=== PATIENT | female | born 1995 ===

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

== ENCOUNTER 2017-04-23 11:02 | Emergency (ER) | payer MEDICAID ==
[2017-04-23 11:02] VITALS: BMI 20.6
[2017-04-23 11:24] VITALS: BP 128/70; PULSE 102; RESP 20; TEMP 98.7; O2SAT 99
[2017-04-23] MEDS ORDERED: Amoxicillin-Clav 875-125 mg Tab PO STA (11:54)
--- NOTE | 2017-04-23 11:57 | C.PDOC ---
History Of Present Illness 21 year old female, with no significant past medical history, presents to ED for evaluation of mild headache and sore throat that gradually worsened over the last 2 days. Pt also reports subjective fever. Denies high fever, drooling, cough, congestion, chest pain, wheezing, shortness of breath, dizziness, nausea , vomiting, or abdominal pain. Time Seen by Provider: 04/23/17 11:25 Chief Complaint (Nursing): ENT Problem History Per: Patient History/Exam Limitations: None Onset/Duration Of Symptoms: Days (2), Gradual Current Symptoms Are (Timing): Still Present Past Medical History Reviewed: Historical Data, Nursing Documentation, Vital Signs Vital Signs: Last Vital Signs Temp 98.7 F 04/23/17 11:21 Pulse 102 H 04/23/17 11:21 Resp 20 04/23/17 11:21 BP 128/70 04/23/17 11:21 Pulse Ox 99 04/23/17 12:18 - [facility] Procedures OTHER SKIN & SUBQ I D (12/06/13) Family History: States: Unknown Family Hx - Social History Hx Tobacco Use: No Hx Alcohol Use: No Hx Substance Use: No - Immunization History Hx Tetanus Toxoid Vaccination: Yes Hx Influenza Vaccination: No Hx Pneumococcal Vaccination: No Review Of Systems Except As Marked, All Systems Reviewed And Found Negative. Constitutional: Positive for: Fever Eyes: Negative for: Vision Change ENT: Positive for: Throat Pain. Negative for: Ear Pain, Nose Discharge, Nose Congestion Cardiovascular: Negative for: Chest Pain, Palpitations Respiratory: Negative for: Cough, Shortness of Breath Gastrointestinal: Negative for: Nausea, Vomiting, Abdominal Pain Neurological: Positive for: Headache. Negative for: Weakness, Numbness, Dizziness Physical Exam - Physical Exam Appears: Well, Non-toxic, No Acute Distress Skin: Normal Color, Warm, Dry, No Rash Head: Normacephalic Eye(s): bilateral: PERRL Ear(s): Bilateral: Normal Nose: No Flaring, No Discharge Oral Mucosa: Moist, No Drooling Throat: Erythema (mod B/L), Exudate (mild B/L), No Drooling, Other (uvul amidline, no edema.) Neck: Trachea Midline, Supple Cardiovascular: Rhythm Regular, No Murmur Respiratory: No Decreased Breath Sounds, No Accessory Muscle Use, No Stridor, No Wheezing Gastrointestinal/Abdominal: Soft, No Tenderness, No Distention, No Guarding Back: No CVA Tenderness Extremity: Normal ROM, No Deformity, No Swelling Neurological/Psych: Oriented x3, Normal Speech ED Course And Treatment O2 Sat by Pulse Oximetry: 99 Pulse Ox Interpretation: Normal Progress Note: On re-eval, pt is Afebrile, hemodynamicaly stable. Non-toxic, tolerate Po well in ED. PUlseOx 99% RA. neck: Supple, (-) meningeal sign. ENT : exam c/w acute pharyngitis. uvula midline, no edema. Lungs: CTA B/L, BS equal B/L. Abd: benign. Neuorlogicaly intact. pt advised. ref. to f/u with PMD, ENT in 1-2 days for re-eavl. return to ED if any worsening or new changes. Disposition Counseled Patient/Family Regarding: Diagnosis, Need For Followup, Rx Given - Disposition Referrals: [facility] at [facility] [Outside] Disposition: HOME/ ROUTINE Disposition Time: 11:35 Condition: STABLE Additional Instructions: Encourage fluids Take medication as prescribed Follow up with PMD in 2-3 days for re-evaluation. Return to ED if any worsening or new changes. Prescriptions: Amoxicillin/Clavulanate [Augmentin 875 MG-125 MG] 1 tab PO BID #14 tab Ibuprofen [Motrin] 1 tab PO TID PRN #20 tab PRN Reason: Pain Instructions: Sore Throat, Adult (DC) Forms: [employer] (Malay) - Clinical Impression Clinical Impression: Pharyngitis - PA / EMT B / Resident Statement MD/DO has reviewed & agrees with the documentation as recorded. - Scribe Statement The provider has reviewed the documentation as recorded by the Rajinder Chou All medical record entries made by the Rajinder were at my direction and personally dictated by me. I have reviewed the chart and agree that the record accurately reflects my personal performance of the history, physical exam, medical decision making, and the department course for this patient. I have also personally directed, reviewed, and agree with the discharge instructions and disposition.
[2017-04-23] MEDS ORDERED: Amoxicillin-Clav 875-125 mg Tab PO ONE (11:59)
== END 2017-04-23 12:13 | disposition home or self-care (01) ==
LOC: C.ER 11:02
DX: J02.9 Acute pharyngitis, unspecified (principal)

== ENCOUNTER 2017-06-22 21:04 | Emergency (ER) | payer MEDICAID ==
[2017-06-22 21:05] VITALS: BMI 20.6
[2017-06-22 21:15] VITALS: RESP 20
[2017-06-22 22:40] LABS: SQUAMOUS EPITHIAL 2 /hpf (0-5); URINE BACTERIA MOD (<OCC); URINE BILIRUBIN NEGATIVE (NEGATIVE); URINE BLOOD 2+ (NEGATIVE); URINE CLARITY Hazy (Clear); URINE COLOR Yellow (YELLOW); URINE GLUCOSE (UA) NORMAL (Normal); URINE LEUKOCYTE ESTERASE 3+ Leu/uL (Negative); URINE PROTEIN 2+ mg/dL (NEGATIVE); URINE UROBILINOGEN NORMAL mg/dL (0.2-1.0)
--- NOTE | 2017-06-22 23:08 | C.PDOC ---
History Of Present Illness 21 year old female presents to the ED c/o lower back pain radiating to her inguinal area. Patient also c/o urinary frequency. Patient denies dysuria, hematuria, fever, chills, nausea, vomit, diarrhea. Time Seen by Provider: 06/22/17 21:46 Chief Complaint (Nursing): Back Pain History Per: Patient History/Exam Limitations: no limitations Onset/Duration Of Symptoms: Days Current Symptoms Are (Timing): Still Present Quality Of Discomfort: "Pain" Previous Symptoms: None Associated Symptoms: None Exacerbating Factor(s): Nothing Recent travel outside of the [place]: No Additional History Per: Patient Past Medical History Reviewed: Historical Data, Nursing Documentation, Vital Signs Vital Signs: Last Vital Signs Temp 99.8 F H 06/22/17 23:30 Pulse 94 H 06/22/17 23:30 Resp 20 06/22/17 23:30 BP 112/70 06/22/17 23:30 Pulse Ox 98 06/22/17 23:30 - Medical History PMH: No Chronic Diseases Surgical History: No Surg Hx - [facility] Procedures OTHER SKIN & SUBQ I D (12/06/13) Family History: States: Unknown Family Hx - Social History Hx Tobacco Use: No Hx Alcohol Use: No Hx Substance Use: No - Immunization History Hx Tetanus Toxoid Vaccination: Yes Hx Influenza Vaccination: No Hx Pneumococcal Vaccination: No Review Of Systems Constitutional: Negative for: Fever, Chills Cardiovascular: Negative for: Chest Pain Respiratory: Negative for: Shortness of Breath Gastrointestinal: Negative for: Abdominal Pain Genitourinary: Positive for: Frequency Musculoskeletal: Positive for: Back Pain Skin: Negative for: Rash Neurological: Negative for: Weakness, Numbness Physical Exam - Physical Exam Appears: Non-toxic, No Acute Distress, Other (low grade temperature ) Skin: Normal Color, Warm, Dry Head: Atraumatic, Normacephalic Eye(s): bilateral: Normal Inspection Nose: No Discharge Oral Mucosa: Moist Neck: Normal ROM, Supple Chest: Symmetrical Cardiovascular: Rhythm Regular, No Murmur Respiratory: Normal Breath Sounds, No Rales, No Rhonchi, No Wheezing Gastrointestinal/Abdominal: Soft, No Tenderness, No Guarding, No Rebound Back: No CVA Tenderness, Paraspinal Tenderness (paralumbar L > R) Extremity: Normal ROM, No Tenderness, Capillary Refill (< 2 seconds), No Swelling Extremity: Bilateral: Normal Color And Temperature, Normal ROM Neurological/Psych: Oriented x3, Normal Motor, Normal Sensation Gait: Steady ED Course And Treatment O2 Sat by Pulse Oximetry: 99 (On RA) Pulse Ox Interpretation: Normal Progress Note: Plan: - macrobid 100 mg PO. - motrin 600 mg po. - urine culture. - UA (UTI). On reassessment, patient is resting comfortably, and is in no acute distress. Patient was instructed to follow up with physician/clinic in 1-2 days for further evaluation. Disposition Counseled Patient/Family Regarding: Need For Followup, Rx Given - Disposition Referrals: [facility] [Outside] Disposition: HOME/ ROUTINE Disposition Time: 23:06 Condition: STABLE Additional Instructions: Please follow up in clinic or with your doctor Increase PO fluids Return to ER if worse Prescriptions: Ibuprofen [Motrin] 600 mg PO Q6H #20 tab Nitrofurantoin Macrocrystals [Macrobid] 1 cap PO BID #14 cap Instructions: Urinary Tract Infection, Adult (DC) Forms: [employer] (Sierra Leonean) - Clinical Impression Clinical Impression: Urinary tract infection - PA / CLINICAL TEAM LEAD / Resident Statement MD/DO has reviewed & agrees with the documentation as recorded. - Scribe Statement The provider has reviewed the documentation as recorded by the Scribe Ran Holder All medical record entries made by the Jadaibjocelyne were at my direction and personally dictated by me. I have reviewed the chart and agree that the record accurately reflects my personal performance of the history, physical exam, medical decision making, and the department course for this patient. I have also personally directed, reviewed, and agree with the discharge instructions and disposition.
[2017-06-22 23:31] VITALS: BP 112/70; PULSE 94; TEMP 99.8
[2017-06-23 01:58] VITALS: O2SAT 99
== END 2017-06-22 23:30 | disposition home or self-care (01) ==
LOC: C.ER 21:04
DX: N39.0 Urinary tract infection, site not specified (principal)